=== PATIENT | female | born 1965 | race Hispanic/Latino ===

== ENCOUNTER → 2016-11-23 | Day surgery (SDC) | payer OTHER, MEDICARE ==
[~2016-11-23] VITALS: Ht 152.4 cm; Wt 72.6 kg
[~2016-11-23] MED LIST: METFORMIN HCL1000 M2 PO
--- NOTE | 2016-11-23 15:33 | Operative Report ---
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 Patient was advised with 2 clips was reconstructed with moderate procedure. She was shown exactly where the incision locations be that being somewhat below the umbilicus and at this. Portion of the bulge. This hematoma be tight but be removed in its majority in regards to skin skin contact. The present. She received a SPS informed consent from the office regarding panniculectomy and has no further questions regarding it today. For consent was signed and she was taken to the operative supine on the table Venodyne boots were place and then general anesthesia was established and intravenous Apgars were given. The lower incision was deepened of Stadol wall fascia and the flap was removed after dividing of the upper incision. 3 layer closure was carried out over 2 drains. Steri-Strips applied to the skin. Dictation
== END ==
LOC: STS 02:11
DX: L30.4 Erythema intertrigo (principal); E65 Localized adiposity; Z98.84 Bariatric surgery status; E11.65 Type 2 diabetes mellitus with hyperglycemia; I10 Essential (primary) hypertension
CPT/HCPCS: 88302; J0131; J0690; J2250; J2405